=== PATIENT | female | born 1955 | race Two or more races ===

== ENCOUNTER 2024-07-16 07:35 | Day surgery (SDC) | payer OTHER ==
[2024-07-10 08:51] LABS: HEMATOCRIT 44.8 % (36.0-45.00); HEMOGLOBIN 15.1 g/dL (12.0-15.00); MEAN CELL VOLUME 92.5 fL (80.00-100.00); MEAN CORPUSCULAR HEMOGLOBIN 31.3 pg (27.00-32.0); MEAN CORPUSCULAR HGB CONC 33.8 g/dl (32.0-36.0); PLATELET COUNT 276 K/uL (150-450); RED BLOOD COUNT 4.84 M/uL (4.00-6.00); RED CELL DISTRIBUTION WIDTH 12.9 % (11.5-14.5)
[2024-07-10 08:57] VITALS: BP 135/85
[2024-07-10 09:28] LABS: INR 1.03; PARTIAL THROMBOPLASTIN TIME 28.2 SECONDS (22.0-34.0); PROTHROMBIN TIME 11.2 SECONDS (9.0-11.5)
[2024-07-10 09:56] LABS: ALBUMIN 3.7 gm/dL (3.4-5.0); BILIRUBIN TOTAL 0.43 mg/dL (0.3-1.2); CREATININE SERUM 0.81 mg/dL (0.55-1.02); GFR 70.53; GLOBULINA 3.4 G/DL (2.4-3.5); POTASSIUM 4.8 mEq/L (3.5-5.1); TOTAL PROTEIN 7.1 gm/dL (6.4-8.2)
[2024-07-10 10:32] LABS: PH,URINE 6.5 (5.0-8.0); URINE APPEARANCE Clear; URINE BILIRRUBIN Negative (NEGATIVE); URINE BLOOD Negative; URINE COLOR Yellow; URINE GLUCOSE Negative (NEGATIVE); URINE KETONE Negative (NEGATIVE); URINE LEUKOCYTE Large; URINE NITRATE Negative; URINE PROTEIN Negative (NEGATIVE); URINE UROBILINOGEN 0.2 E.U./dl
[2024-07-10 10:34] LABS: URINE BACTERIA 356.5 uL (0.0-1933); URINE EPITHELIAL CELLS 33.5 uL (0.0-38.8); URINE RBC 3.8 uL (0.0-20.8); URINE WBC 222.9 uL (0.0-23.2)
[~2024-07-16] VITALS: Ht 157.5 cm; Wt 77.6 kg
[~2024-07-16 07:35] MED LIST: COZAAR50 MG PO; PEPCID AC20 MG PO
[2024-07-16] MEDS ORDERED: BUPIVACAINE HCL/PF 0.25% 30ML VIAL InF ONE (10:45)
[2024-07-16] MEDS ORDERED: METHYLPREDNISOLONE ACETATE 80 MG/ML VIAL IU ONE (10:45)
[2024-07-16] MEDS ORDERED: EPINEPHRINE HCL/PF 1 MG/ML AMPUL IJ ONE (10:45)
[2024-07-16] MEDS ORDERED: VANCOMYCIN HCL 1,000 MG VIAL IV ONE (10:45)
[2024-07-16] MEDS ORDERED: MEPERIDINE HCL/PF 25 MG/ML VIAL IM PRN (13:00)
[2024-07-16] MEDS ORDERED: PROMETHAZINE HCL 25 MG/ML AMPUL IM PRN (13:00)
[2024-07-16] MEDS ORDERED: TRAM1TAB98 PO (13:12)
[2024-07-16] MEDS ORDERED: BACTRIM DS TAB1 EACH PO (13:13)
[2024-07-16] MEDS ORDERED: MORPHINE SULFATE 4 MG/ML VIAL IV ONE ×2 (13:15→14:40)
== END 2024-07-16 15:55 | disposition home or self-care (01) ==
LOC: CIR.AMB 07:35
PROVIDERS: ATTEND Orthopaedic Surgery Sports Medicine
DX: M23.221 Derangement of posterior horn of medial meniscus due to old tear or injury, right knee (principal); M23.251 Derangement of posterior horn of lateral meniscus due to old tear or injury, right knee; M17.11 Unilateral primary osteoarthritis, right knee; M65.861 Other synovitis and tenosynovitis, right lower leg